=== PATIENT | male | born 1985 | race Caucasian/White ===

== ENCOUNTER 2020-10-16 22:24 | Emergency (ER) | payer SELFPAY ==
[~2020-10-16] VITALS: Ht 172.7 cm; Wt 69.9 kg
[2020-10-16 22:42] VITALS: Ht 172.7 cm; Wt 69.9 kg
[2020-10-17 02:58] VITALS: BP 122/77
== END 2020-10-17 02:58 | disposition home or self-care (01) ==
LOC: ED 22:24
DX: S02.2XXA Fracture of nasal bones, initial encounter for closed fracture (principal); Y04.8XXA Assault by other bodily force, initial encounter; Y93.89 Activity, other specified; Y92.89 Other specified places as the place of occurrence of the external cause; Y99.8 Other external cause status
CPT/HCPCS: 90715; J1885